=== PATIENT | female | born 1990 | race Caucasian/White ===

== ENCOUNTER 2018-01-19 19:03 | Emergency (ER) | END 2018-01-19 23:19 | disposition home or self-care (01) ==

== ENCOUNTER 2018-03-02 18:58 | Emergency (ER) | END 2018-03-02 21:30 | disposition home or self-care (01) ==

== ENCOUNTER 2018-07-27 13:08 | Inpatient (IN) | payer OTHER ==
[~2018-07-27] VITALS: Ht 152.4 cm; Wt 97.0 kg
[~2018-07-27 13:08] MED LIST: ACET500C5 PO; AMOX500C2 PO; CEPH-443 PO
[2018-07-27 13:26] VITALS: Ht 152.4 cm; Wt 97.0 kg
[2018-07-27 13:27] VITALS: BP 126/75; PULSE 102; RESP 20
--- NOTE | 2018-07-27 15:00 | TRIAGE ---
OB Triage Datetime Report Generated by CPN: 07/27/2018 15:00 Datetime: 07/27/2018 14:49 Vaginal Exam Dilatation (cms): 2.0 Effacement (%): 40 Station: -3 Exam By: MAY Datetime: 07/27/2018 14:46 Labor Evaluation Frequency: X3 Monitor Mode: External Duration (sec)2399: 60 Quality: Mild Pattern: Normal: <= 5 Contractions in 10 Minutes Resting Tone [place]: Relaxed Heart Rate FHR Baseline Rate: 130 Monitor Mode: External US FHR Baseline Changes: No Baseline Change Variability: Moderate 6-25 bpm Accelerations: 15X15 Decelerations: None Category: Category I Pain Assessment Pain Scale: 0 Pain Presence: None/Denies Pain Type: N/A Pain Goal: 0 Datetime: 07/27/2018 14:39 Monitor Mode: External US Datetime: 07/27/2018 14:16 Heart Rate FHR Baseline Rate: 130 Pain Assessment Pain Scale: 0 Pain Presence: None/Denies Pain Type: N/A Pain Goal: 0 Datetime: 07/27/2018 13:46 Labor Evaluation Frequency: X2 Monitor Mode: External Duration (sec)2399: 40-60 Quality: Mild Pattern: Normal: <= 5 Contractions in 10 Minutes Resting Tone [place]: Relaxed Heart Rate FHR Baseline Rate: 140 Monitor Mode: External US FHR Baseline Changes: No Baseline Change Variability: Moderate 6-25 bpm Accelerations: 15X15 Decelerations: None Category: Category I Pain Assessment Pain Scale: 0 Pain Presence: None/Denies Pain Type: N/A Pain Goal: 0 Datetime: 07/27/2018 13:16 Time of Arrival: 07/27/2018 13:01 EGA: 39.5 Chief Complaint: ELEVATED BLOOD PRESSURE Movement: Present Contractions: Occasional Rupture of Membranes: Denies Vaginal Discharge: Denies Recent Sexual Intercouse: Denies Abdominal Trauma: Not Applicable Patient Complaints: Other Time Provider Notified: 07/27/2018 13:45 Provider Notified: DR. DELVALLE Initial Plan: PI PANEL, BPP, EFW Datetime: 07/27/2018 13:14 Stage of : OB Triage Assessment Type: Triage Maternal Assessment Level of Consciousness: Fully Conscious DTR's/Clonus: DTRs 2+; No Clonus Headache: Denies Blurred Vision: No Respiratory Effort: Unlabored; Regular Rhythm; Equal Expansion Breath Sounds, Left: Clear and Equal Breath Sounds, Right: Clear and Equal Nausea/Vomiting: Denies RUQ Epigastric Pain: Denies Lower Extremities Edema: Bilateral Lower Extremities Degree: Pitting Upper Extremities Edema: None Degree: None Facial Edema: None Fall Risk Assessment History of Falling: (0) No Secondary Diagnosis: (0) No Ambulatory Aid: (0) Bedrest/Nurse Assist IV Therapy: (0) No Gait: (0) Normal/Bedrest/Immobile Mental Status: (0) Oriented to Own Ability Fall Score: 0 Fall Risk Score Definition: No Risk: No action required Monitor Mode: External Monitor Mode: External US Pain Assessment Pain Scale: 0 Pain Presence: None/Denies Pain Type: N/A Pain Goal: 0 Membrane Status: Intact
[2018-07-27] MEDS ORDERED: LACTATED RINGER'S 1,000 ML IV PRN (15:03)
[2018-07-27] MEDS ORDERED: IBUPROFEN 600 MG TAB PO PRN (15:30)
[2018-07-27] MEDS ORDERED: OXYCODONE/ASPIRIN (4.88/325) TAB PO PRN (15:30)
[2018-07-27] MEDS ORDERED: MISOPROSTOL 50 MCG CAPSULE VAG ONE (15:30)
[2018-07-27] MEDS ORDERED: MISOPROSTOL 200 MCG TAB PR PRN (15:30)
[2018-07-27] MEDS ORDERED: METHYLERGONOVINE 0.2 MG INJ IM PRN (15:30)
[2018-07-27] MEDS ORDERED: BUTORPHANOL 2 MG INJ IV PRN (15:30)
[2018-07-27] MEDS ORDERED: OXYTOCIN 30 UNITS/LR 500 ML IV PRN (15:30)
[2018-07-27] MEDS ORDERED: CARBOPROST 250 MCG INJ IM PRN (15:30)
[2018-07-27] MEDS ORDERED: OXYTOCIN 30 UNITS/LR 500 ML IV SCH ×2 (15:30)
[2018-07-27] MEDS ORDERED: LIDOCAINE 1% (MPF) 30 ML INJ INJ PRN (15:30)
[2018-07-27] MEDS: LACTATED RINGER'S 1,000 ML IV SCH ×2 (16:31→22:10)
[2018-07-27] MEDS: MISOPROSTOL 50 MCG CAPSULE PO SCH ×2 (17:43→22:10)
[2018-07-27] MEDS ORDERED: MINERAL OIL LIGHT 10 ML VIAL TOP PRN (20:00)
--- NOTE | 2018-07-28 03:22 | PREAC ---
Date/Time of Note Date/Time of Note DATE: 07/28/18 TIME: 03:21 Anesthesia Eval and Record Evaluation Time Pre-Procedure Interview DATE: 07/28/18 TIME: 03:21 Age 27 Sex female NPO: 8 hrs Preoperative diagnosis Planned procedure labor epidural Past Medical History Past Medical History: Includes GI: Morbid obesity Surgery & Anesthesia Issues No known issue Meds Anticoagulation: No Beta Bc within 24 hr: No Reason Beta Bc not given: Pt. not on B-Bc Active Scripts Cephalexin* (Keflex*) 500 Mg Capsule, 500 MG PO BID for 10 Days, CAP Prov:JANEE SCHAEFER-C 03/02/18 Amoxicillin* (Amoxicillin*) 500 Mg Cap, 500 MG PO BID, #14 CAP Prov:COLLINS FERNANDEZ-C 01/19/18 Acetaminophen* (Tylophen*) 500 Mg Capsule, 2 CAP PO Q6 PRN for PAIN AND OR ELEVATED TEMP, #20 CAP Prov:COLLINS FERNANDEZ-C 01/19/18 Current Medications Lactated Ringer's 1,000 ml @ 125 mls/hr Q8H IV Last administered on 07/27/18at 22:10; Admin Dose 125 MLS/HR; Start 07/27/18 at 15:03 Butorphanol Tartrate (Stadol) 2 mg Q2H PRN IV .PAIN; Start 07/27/18 at 15:30 Lidocaine (Xylocaine 1% (Mpf)) 30 ml ONCE PRN INJ .EPISIOTOMY; Start 07/27/18 at 15:30 Oxytocin/Lactated Ringer's 500 ml @ 500 mls/hr ONCE POST IV ; Start 07/27/18 at 15:30 Oxytocin/Lactated Ringer's 500 ml @ 125 mls/hr POST IV ; Start 07/27/18 at 15:30 Ibuprofen (Motrin) 600 mg ONCE PRN PO .PAIN 1-5; Start 07/27/18 at 15:30 Oxycodone/Aspirin (Percodan) 2 tab ONCE PRN PO .PAIN 6-10; Start 07/27/18 at 15:30 Lactated Ringer's 1,000 ml @ 2,000 mls/hr Q30M PRN IV .ANESTHESIA; Start 07/27/18 at 15:03 Oxytocin/Lactated Ringer's 500 ml @ 0 mls/hr ONCE PRN IV .VAGINAL BLEEDING; Start 07/27/18 at 15:30 Methylergonovine Maleate (Methergine) 0.2 mg ONCE PRN IM .VAGINAL BLEEDING; Start 07/27/18 at 15:30 Carboprost Tromethamine (Hemabate) 250 mcg ONCE PRN IM .VAGINAL BLEEDING; Start 07/27/18 at 15:30 Misoprostol (Cytotec) 1,000 mcg ONCE PRN [place] .VAGINAL BLEEDING; Start 07/27/18 at 15:30 Mineral Oil (Muri-Lube) PRN PRN TOP LUBRICANT; Start 07/27/18 at 20:00 Misoprostol (Cytotec 50 Mcg Capsule) 50 mcg Q4H PO Last administered on 07/27/18at 22:10; Admin Dose 50 MCG; Start 07/27/18 at 17:30 Meds reviewed: Yes Allergies Coded Allergies: No Known Allergy (Unverified , 01/19/18) Allergies Reviewed: Yes Labs/Studies Labs Reviewed: Reviewed by anesthesiologist Result Diagram: 07/27/18 1353 07/27/18 1353 Laboratory Tests 07/27/18 13:53 Blood Bank Test 07/27/18 13:52 Antibody Screen NEGATIVE Blood Type A POSITIVE Rh Immune Globulin Candidate NO test: Positive Pre-procedure Exam Last vitals Vital Signs Date Temp Pulse Resp B/P (MAP) Pulse Ox O2 O2 Flow FiO2 Time Delivery Rate 07/27/18 98.7 102 20 126/75 Room Air 13:27 (92) Airway: Adequate mouth opening, Adequate thyromental dist Mallampati: Mallampati II Teeth: Normal Lung: Normal Heart: Normal ASA Physical Status ASA physical status: 2 Emergency: None Planned Anesthetic Neuraxial: Epidural Pre-operative Attestations Prior to commencing anesthesia and surgery, the patient was re-evaluated, there was verification of: *The patient's identity *The results of appropriate recent lab work and preoperative vital signs *The above evaluation not changing prior to induction *Anesthetic plan, risk benefits, alternative and complications discussed with patient/family; questions answered; patient/family understands, accepts and wishes to proceed. LENORA SALAZAR Jul 28, 2018 03:22
[2018-07-28] MEDS ORDERED: FENTAnyl 2MCG/ML-ROPIV 0.2% 100 ML BAG EPI SCH (03:30)
[2018-07-28] MEDS ORDERED: ONDANSETRON 4 MG INJ IV PRN (03:30)
[2018-07-28] MEDS ORDERED: KETOROLAC 30 MG INJ IV PRN (03:30)
[2018-07-28] MEDS ORDERED: NALOXONE (0.4 MG/ML) INJ IV PRN (03:30)
[2018-07-28] MEDS ORDERED: DIPHENHYDRAMINE 50 MG INJ IV PRN (03:30)
[2018-07-28] MEDS ORDERED: HYDROmorphONE 0.5 MG/0.5 ML SYG IV PRN ×2 (03:30)
[2018-07-28] MEDS: LACTATED RINGER'S 1,000 ML IV SCH ×2 (07:19→14:56)
[2018-07-28] MEDS ORDERED: OXYTOCIN 30 UNITS/LR 500 ML IV SCH (08:00)
--- NOTE | 2018-07-28 16:52 | HP ---
Date/Time of Note Date/Time of Note DATE: 07/28/18 TIME: 16:49 OB - History Hx of Present Free Text/Dictation 27-year-old female 1 para 0 at 39 weeks and 5 days gestation admitted for elective induction and possible -induced hypertension Chief Complaint: Patient denies headache blurred vision or epigastric pain Last Menstrual Period: August 23, 2017 Estimated Due Date: Jul 29, 2018 : 1 Para: 0 Care: Good Care Ultrasounds: Normal mid trimester US Obstetrical Complications: None Medical Complications: None Past Family/Social History * Past Medical, Surgical, Family and Obstetric Histories reviewed from chart. Blood Type: O+ Rubella: immune RPR/VDRL: Negative GBS Status: Negative HBsAG: Negative OB Admission Exam Vital Signs Vital Signs Vital Signs Date Temp Pulse Resp B/P (MAP) Pulse Ox O2 O2 Flow FiO2 Time Delivery Rate 07/27/18 98.7 102 20 126/75 Room Air 13:27 (92) Physical Exam HEENT: WNL Heart: Rhythm Normal Lungs: Clear, Equal Abdomen: WNL Extremities: Normal Reflexes: Normal Cervical Dilatation: 2cm Effacement: 25% Station: -3 Membranes: Intact Heart Rate: 140's Decelerations: No Decelerations Varibility: Marked Contractions on Admission: None Last 72 hours Lab Results CBC & BMP 07/27/18 13:53 Liver Function Test 07/27/18 13:53 Alanine Aminotransferase (ALT/SGPT) 28 Albumin 3.4 Alkaline Phosphatase 182 H Aspartate Amino Transf (AST/SGOT) 25 Direct Bilirubin 0.00 Total Protein 7.4 OB Assessment/Plan Reason for admission: induction of labor Other Assessment: Elective induction of labor at term Other plan: Start using Cytotec LORNA CAZARES MD Jul 28, 2018 16:52
[2018-07-28] MEDS ORDERED: KETOROLAC 30 MG INJ IV STA (18:11)
--- NOTE | 2018-07-28 18:11 | LDN ---
Date/Time of Note Date/Time of Note DATE: 07/28/18 TIME: 18:09 Delivery Summary Normal spontaneous vaginal delivery of a viable infant over intact perineum Weeks of Gestation 39 weeks and 6 days Placenta Delivered: Spontaneously, Intact & Complete Meconium: none Episiotomy: No Perineal laceration: 1 Laceration repair: Small first-degree perineal laceration was repaired in layers using 2-0 Vicryl stitch Anesthesia type: Epidural Estimated blood loss: 200 Sponge & Needle done & correct: Yes All needle counts correct: Yes Any foreign bodies felt in the: No Infant Delivery Information Sex Infant Sex: female Apgars 1 Minute: 9 5 Minute: 9 Suctioning Nose & mouth suctioned at kylie: Yes Delee suction performed: No Umbilical Cord Umbilical cord with: 3 Vessels Cord presentations: no nuchal cord Cord Blood was obtained: Yes Mother & Baby Disposition Disposition Mom & Baby to Maternity; Good: Yes (Mother and baby were recovering in good condition) Mom transferred to: Other (Maternity) Baby to NICU: No LORNA CAZARES MD Jul 28, 2018 18:11
[2018-07-28] MEDS ORDERED: LACTATED RINGER'S 1,000 ML IV* SCH (20:29)
[2018-07-28] MEDS ORDERED: BENZOCAINE 20% 56 ML SPRAY TOP PRN (20:30)
[2018-07-28] MEDS ORDERED: DIBUCAINE 1% 30 GM OINT TOP PRN (20:30)
[2018-07-28] MEDS ORDERED: WITCH HAZEL/GLYCERIN PAD PR PRN (20:30)
[2018-07-28] MEDS ORDERED: MISOPROSTOL 200 MCG TAB PR PRN (20:30)
[2018-07-28] MEDS ORDERED: METHYLERGONOVINE 0.2 MG INJ IM PRN (20:30)
[2018-07-28] MEDS ORDERED: OXYTOCIN 30 UNITS/LR 500 ML IV PRN (20:30)
[2018-07-28] MEDS ORDERED: HYDROCODONE/APAP (5/325) TAB PO PRN ×2 (20:30)
[2018-07-28] MEDS ORDERED: ZOLPIDEM 5 MG TAB PO PRN (20:30)
[2018-07-28] MEDS ORDERED: LANOLIN HPA 1 PKT TOP PRN (20:30)
[2018-07-28] MEDS ORDERED: CARBOPROST 250 MCG INJ IM PRN (20:30)
[2018-07-28 20:50] VITALS: BP 133/71; PULSE 95; RESP 19
[2018-07-28] MEDS: MAGNESIUM HYDROXIDE 30ML CUP PO SCH (21:00)
[2018-07-28] MEDS: SENNA/DOCUSATE NA (8.6MG/50MG) TAB PO SCH (21:00)
[2018-07-28] MEDS: CEPHALEXIN 500 MG CAP PO SCH (23:50)
[2018-07-28] MEDS: IBUPROFEN 600 MG TAB PO SCH (23:50)
[2018-07-29 04:15] VITALS: BP 112/73; PULSE 84; RESP 19
[2018-07-29] MEDS: IBUPROFEN 600 MG TAB PO SCH ×4 (05:43→23:46)
[2018-07-29] MEDS: CEPHALEXIN 500 MG CAP PO SCH ×4 (05:43→23:46)
[2018-07-29 08:30] VITALS: BP 119/86; PULSE 86; RESP 18
[2018-07-29] MEDS: MAGNESIUM HYDROXIDE 30ML CUP PO SCH ×2 (08:53→21:00)
[2018-07-29] MEDS: SENNA/DOCUSATE NA (8.6MG/50MG) TAB PO SCH ×2 (08:53→21:31)
[2018-07-29 16:15] VITALS: BP 115/80; PULSE 85; RESP 16
[2018-07-29 19:45] VITALS: BP 111/63; PULSE 91; RESP 18
--- NOTE | 2018-07-29 22:34 | DS ---
Date/Time of Note Date/Time of Note home today or next day DATE: 07/29/18 TIME: 22:30 Obstetrical Discharge Record Final Diagnosis Final Diagnosis: Term delivered Other Final Diagnosis S/P vaginal delivery Vaginal Delivery Obstetrical Delivery: Spontaneous, Laceration, Repaired Complications Augmentation: Yes Induction: Yes Condition on Discharge Physical Assessment Last Vitals: see burses notes Voiding: Yes Bowel Movement: Yes Breast: Soft, non-tender, Filling Fundus: Firm Abdomen and Incision: soft BS+ Fundus firm Episiotomy: perineum healing well and appears clean Calf Tenderness: No Patient Condition: Good LORNA CAZARES MD Jul 29, 2018 22:34
--- NOTE | 2018-07-29 22:36 | PD.PPDC ---
AUT[employer] B[employer] MAN Discharge Instruction Provider Information Physician Information 27 y/o female had vaginal delivery Diagnosis [id number] Final Diagnosis: Rxgea5s S/P vaginal delivery Condition Iroct1Qj Patient Condition: Yzyyg1g Good Diet [id number] Diet: Giryo1n Resume Regular Diet Activity/Restrictions [id number] Activity: Anqir1g Normal Activity May Shower [id number] Restrictions: Tjrog3g Nothing in the Vagina [id number] Return to Work or School: [id number] September 11, 2018 Follow-up Follow-up with Physician: 2, 4, Week/Weeks (in clinic) Return to clinic for [id number] OB Instructions: [id number] Breast Tenderness Depression LORNA CAZARES MD Jul 29, 2018 22:36
[2018-07-29] MEDS ORDERED: IBUP-1542 PO (22:37)
[2018-07-30 04:10] VITALS: BP 110/65; PULSE 76; RESP 18
[2018-07-30] MEDS: CEPHALEXIN 500 MG CAP PO SCH ×2 (05:53→12:06)
[2018-07-30] MEDS: IBUPROFEN 600 MG TAB PO SCH ×2 (05:53→12:00)
[2018-07-30 08:00] VITALS: BP 114/68; PULSE 84; RESP 18
[2018-07-30] MEDS ORDERED: DIPHTH/TET/ACEL PERTUSS (ADULT) 0.5 ML VIAL IM* ONE (09:00)
[2018-07-30] MEDS: MAGNESIUM HYDROXIDE 30ML CUP PO SCH (09:00)
[2018-07-30] MEDS: SENNA/DOCUSATE NA (8.6MG/50MG) TAB PO SCH (09:00)
[2018-07-30] MEDS ORDERED: VARICELLA VACCINE LIVE/PF 1,350 UNIT/0.5 ML ML SC* ONE (09:00)
[2018-07-30] MEDS ORDERED: MEASLES,MUMPS,RUBELLA VACCINE INJ SC* ONE (09:00)
--- NOTE | 2018-07-30 14:27 | QN ---
Documentation Comment PPD# 2 iss table afebrile tolerates diet No VB +BM +voids Vs stable Gen NAD Abd soft NT ND Genitalia no blood at perineum -->Discharge home with precautions AL BOLTON M.D. Jul 30, 2018 14:27
--- NOTE | 2018-07-31 13:35 | PAC ---
Date/Time of Note Date/Time of Note DATE: 07/31/18 TIME: 13:34 Post-Anesthesia Notes Post-Anesthesia Note Last documented vital signs Vital Signs Date Temp Pulse Resp B/P (MAP) Pulse Ox O2 O2 Flow FiO2 Time Delivery Rate 07/30/18 98.3 84 18 114/68 Room Air 08:00 (83) Activity: WNL Respiratory function: WNL Cardiovascular function: WNL Mental status: Baseline Pain reasonably controlled: Yes Hydration appropriate: Yes Nausea/Vomiting absent: Yes LENORA SALAZAR Jul 31, 2018 13:34
--- NOTE | 2018-07-31 15:15 | DELSUM ---
Delivery Summary A-C Datetime Report Generated by CPN: 07/31/2018 15:14 DELIVERY PERSONNEL [employer]: Duvo, Anabela MATERNAL INFORMATION Delivery Anesthesia: Epidural Medications in Delivery: pitocin 30 units, mineral oil Delivery QBL (ml): 115 Placenta Cultured: No Maternal Complications: Other Other Maternal Complications: HIGH BP LABOR SUMMARY EDC: 07/29/2018 00:00 No. Babies in Womb: 1 Attempted: No Labor Anesthesia: Epidural LABOR INFORMATION Reason for Induction: Gest. HTN/PreEclam/Eclamp Onset of Labor: 07/28/2018 04:28 Complete Dilatation: 07/28/2018 16:40 Cervical Ripening Agents: Cytotec @ Oxytocin: Induction Group B Beta Strep: Negative Antibiotics # of Doses: 0 Steroids Given: None Reason Steroids Not Administered: Not Applicable MEMBRANES Membranes Rupture Method: Spontaneous Rupture of Membranes: 07/28/2018 13:12 Length of Rupture (hr): 4.75 Amniotic Fluid Color: Clear Amniotic Fluid Amount: Moderate Amniotic Fluid Odor: None STAGES OF LABOR Stage 1 hr: 12 Stage 1 min: 12 Stage 2 hr: 1 Stage 2 min: 17 Stage 3 hr: 0 Stage 3 min: 2 Total Time in Labor hr: 13 Total Time in Labor min: 31 VAGINAL DELIVERY Episiotomy: None Laceration Extension: First Degree Laceration Type: Perineal Laceration Repair: Yes Initial Vag Sponge Count: 10 Final Vag Sponge Count: 10 Initial Vag Sharps Count: 1 Final Vag Sharps Count: 2 Sponge Count Correct: Yes; Vaginal Sweep Performed Sharps Count Correct: Yes BABY A INFORMATION Delivery Date/Time: 07/28/2018 17:57 Method of Delivery: Vaginal Born in Route : No : N/A Forceps: N/A Vacuum Extraction: N/A Shoulder Dystocia : No SHOULDER DYSTOCIA BABY A Delivery Date/Time: 07/28/2018 17:57 PRESENTATION/POSITION BABY A Presentation: Cephalic Cephalic Presentation: Vertex Vertex Position: Left Occipital Anterior Breech Presentation: N/A PLACENTA INFORMATION BABY A Placenta Delivery Time : 07/28/2018 17:59 Placenta Method of Delivery: Spontaneous Placenta Status: Delivered SCORES BABY A Heart Rate 1 min: >100 bpm Resp Effort 1 min: Good Cry Reflex Irritability 1 min: Cough/Sneeze/Pulls Away Muscle Tone 1 min: Active Motion Color 1 min: Body Triplett, Extremit Blue Resuscitation Effort 1 min: Tactile Stimulation SCORE 1 MIN: 9 Heart Rate 5 min: >100 bpm Resp Effort 5 min: Good Cry Reflex Irritability 5 min: Cough/Sneeze/Pulls Away Muscle Tone 5 min: Active Motion Color 5 min: Body Triplett, Extremit Blue Resuscitation Effort 5 min: Tactile Stimulation SCORE 5 MIN: 9 INFORMATION BABY A Gestational Age at Delivery: 39.6 Gestational Status: Full Term- 39- 40.6 Weeks Infant Outcome : Liveborn Infant Condition : Stable Infant Sex: Female IDENTIFICATION/MEDS BABY A ID Band Number: [id number] ID Band Location: Right Leg; Left Arm Sensor Applied: Yes Sensor Number: [id number] Sensor Location : Cord Clamp Vitamin K Given : Not Given Erythromycin Given: Not Given WEIGHT/LENGTH BABY A Birthweight (gm): 3325 Infant Weight (lb): 7 Infant Weight (oz): 5 Infant Length (in): 19.00 Infant Length (cm): 48.26 CORD INFORMATION BABY A No. Cord Vessels: 3 Nuchal Cord : N/A Cord Blood Taken: Yes Suction: Mouth; Nose ASSESSMENT BABY A Complications: Extended Bradycardi; Other Infant Complications- Other: TERMINAL MEC Physical Findings at Delivery: Skin Tags Physical Findings- Other: RIGHT ear Respirations: Appears Normal Egg Crater/ALS Called : Yes Infant Care By: Iman THIBODEAUX Transferred To: Remains with Mother
== END 2018-07-30 15:14 | disposition home or self-care (01) | DRG 807 ==
LOC: L-D 13:08 → OBT 13:08 → L-D 14:55 → OBT 14:55 → L-D 16:01 → PP1 07-28 20:47
PROVIDERS: ADMIT Obstetrics & Gynecology; ATTEND Obstetrics & Gynecology
PROC: 10E0XZZ Delivery of Products of Conception, External Approach (ICD-10-PCS; principal; 2018-07-28)
PROC: 0HQ9XZZ Repair Perineum Skin, External Approach (ICD-10-PCS; 2018-07-28)
DX: O70.0 First degree perineal laceration during delivery (principal); Z37.0 Single live birth; Z3A.39 39 weeks gestation of pregnancy
CPT/HCPCS: 76815; 76818; 80053; 81001; 81003; 84560; 85025; 85610; 85730; 86592; 86850; 86900; 86901; 87340; 90716; 99464; G0463; J2590; J3010; J7120